=== PATIENT | male | born 1970 | race Caucasian/White ===

== ENCOUNTER 2021-04-27 11:32 | Outpatient (CLI) | payer BC | END 2021-04-27 11:33 | disposition home or self-care (01) | LOC: MADRAD 11:32 | PROVIDERS: ATTEND Family Medicine | DX: J96.11 Chronic respiratory failure with hypoxia (principal); R91.8 Other nonspecific abnormal finding of lung field | CPT/HCPCS: 71046 ==

== ENCOUNTER 2025-03-08 15:15 | Outpatient (CLI) | payer BC | END 2025-03-08 15:16 | disposition home or self-care (01) | LOC: MADRAD 15:15 | PROVIDERS: ATTEND Family Medicine | DX: J45.20 Mild intermittent asthma, uncomplicated (principal) | CPT/HCPCS: 71046 ==